=== PATIENT | female | born 1990 | race Two or more races ===

== ENCOUNTER → 2021-09-30 | Outpatient (CLI) | payer MEDICAID ==
[~2021-09-30] MED LIST: NORG1TAB OR; PROP60CA34 PO
[2021-09-30 14:39] LABS: Urine Bacteria NONE SEEN /hpf (None Seen); Urine Blood 2+ /uL (Negative); Urine Mucus FEW (None Seen); Urine Specific Gravity 1.018 (1.001-1.035); Urine WBC 1804 /hpf (0 - 5); Urine WBC Clumps PRESENT /hpf (None Seen)
[2021-10-01 07:57] LABS: Urine Bacteria NONE SEEN /hpf (None Seen); Urine Blood 3+ /uL (Negative); Urine Budding Yeast FEW /hpf (None Seen); Urine Mucus FEW (None Seen); Urine Specific Gravity 1.014 (1.001-1.035); Urine WBC 940 /hpf (0 - 5); Urine WBC Clumps PRESENT /hpf (None Seen)
== END | disposition home or self-care (01) ==
LOC: LAB 13:27
PROVIDERS: ATTEND Urology
DX: N39.0 Urinary tract infection, site not specified (principal)
CPT/HCPCS: 81001; 87086

== ENCOUNTER → 2021-10-07 | Outpatient (CLI) | payer MEDICAID ==
[2021-10-07 13:48] LABS: Urine Bacteria FEW /hpf (None Seen); Urine Blood 3+ /uL (Negative); Urine Mucus FEW (None Seen); Urine WBC 234 /hpf (0 - 5); Urine WBC Clumps PRESENT /hpf (None Seen)
== END | disposition home or self-care (01) ==
LOC: LAB 13:22
PROVIDERS: ATTEND Urology
DX: N39.0 Urinary tract infection, site not specified (principal)
CPT/HCPCS: 81001; 87086

== ENCOUNTER 2021-10-19 00:50 | Inpatient (IN) | payer MEDICAID ==
[~2021-10-19] VITALS: Ht 160 cm; Wt 108.3 kg
[2021-10-19 02:33] LABS: Basophils # (auto) 0.1 10 ^3/uL (0-0.2); Eosinophils # (auto) 0 10 ^3/uL (0-0.8); Monocytes # (auto) 0.9 10 ^3/uL (0-1.3)
[2021-10-19 02:35] LABS: Basophils % (auto) 0.9 % (0.0-2.0); Eosinophils % (auto) 0.5 % (0.0-7.0); Hematocrit 26.2 % (36.0-46.0); Hemoglobin 7.7 g/dL (12.2-16.2); Lymphocytes # (auto) 1.7 10 ^3/uL (0.4-5.4); Lymphocytes % (auto) 18.2 % (10.0-50.0); Mean Corpuscular Hgb Conc. 29.5 g/dL (32.0-36.0); Mean Corpuscular Volume 57.5 fL (80.0-100.0); Monocytes % (auto) 9.6 % (0.0-12.0); Neutrophils # (auto) 6.6 10 ^3/uL (1.6-8.6); Neutrophils % (auto) 70.8 % (37.0-80.0); Red Blood Cells 4.56 10^6/uL (4.0-5.20); Red Cell Distribution Width 19.1 % (11.8-14.3); White Blood Cell 9.2 10^3/uL (4.4-10.8)
[2021-10-19 02:36] LABS: Urine Bacteria NONE SEEN /hpf (None Seen); Urine Blood 2+ /uL (Negative); Urine Mucus MODERATE (None Seen); Urine WBC 1117 /hpf (0 - 5); Urine WBC Clumps PRESENT /hpf (None Seen)
[2021-10-19 02:43] LABS: Urine Specific Gravity 1.032 (1.001-1.035)
[2021-10-19 02:50] LABS: Albumin 3.8 g/dL (3.4-5.0); BUN/Creatinine Ratio 14.4; Calcium 8.9 mg/dL (8.5-10.1)
[2021-10-19 02:53] LABS: Bilirubin, Total 0.3 mg/dL (0.2-1.0); Total Protein 8.4 g/dL (6.4-8.2)
[2021-10-19] MEDS ORDERED: IOHEXOL 300 MG/ML 100ML BOTTLE IJ ONE (03:19)
[2021-10-19] MEDS ORDERED: ONDANSETRON HCL 4 MG/2 ML VIAL IV ONE (06:15)
[2021-10-19] MEDS ORDERED: HYDROmorphone HCL 2 MG/ML VL/or syr IV ONE (06:15)
[2021-10-19] MEDS ORDERED: SODIUM CHLORIDE 0.9% 1,000 ML IV ONE (06:15)
[2021-10-19] MEDS ORDERED: ACETAMINOPHEN 325 MG TAB PO PRN (10:30)
[2021-10-19] MEDS: SODIUM CHLORIDE 0.9% 1,000 ML IV SCH (10:30)
[2021-10-19] MEDS: HYDROcodone-ACET 5/325MG TAB PO PRN (10:43)
[2021-10-19] MEDS: metroNIDAZOLE 500MG/100ML 100 ML IV SCH ×2 (10:43→18:22)
[2021-10-19] MEDS: cefTRIAXone 1GM/50ML D5W 50 ML IV SCH (11:41)
[2021-10-19 12:23] LABS: Magnesium 2.3 mg/dL (1.6-2.6); Phosphorus 3.4 mg/dL (2.5-4.90)
[2021-10-19 13:30] VITALS: BP 110/51
[2021-10-19] MEDS ORDERED: IOTHALAMATE MEGLUMINE INJ 250ML BOT UR ONE (14:49)
[2021-10-19 15:15] LABS: INR 0.96 (0.9-1.15); Partial Thromboplastin Time 29.1 sec (24.6-33.4)
[2021-10-19] MEDS: MORPHINE SULFATE INJ 2 MG/ml SYRG IV PRN (16:39)
[2021-10-19 16:55] VITALS: BP 117/60
[2021-10-19] MEDS ORDERED: TPN PER PHARMACY 0 ML IV SCH (17:30)
[2021-10-19 19:45] VITALS: BP 114/57
[2021-10-19] MEDS ORDERED: AMINO ACID INFUSION IN D10W 1,000 ML IV NR (20:00)
[2021-10-19 22:00] VITALS: BP 114/57
[2021-10-20] MEDS ORDERED: DEXTROSE (50%) 50ML SYRG IV SCH
[2021-10-20] MEDS: ACCU-CHEK COMFORT CURVE STRIP VI SCH ×5 (00:40→23:58)
[2021-10-20] MEDS: metroNIDAZOLE 500MG/100ML 100 ML IV SCH ×3 (02:53→18:27)
[2021-10-20] MEDS: SODIUM CHLORIDE 0.9% 1,000 ML IV SCH ×2 (03:10→19:50)
[2021-10-20 05:00] VITALS: BP 121/76
[2021-10-20] MEDS: InsuLIN REG 1unit/0.01ml Soln (100units/ml) SC SCH ×5 (06:00→23:59)
[2021-10-20 06:09] LABS: Basophils # (auto) 0.1 10 ^3/uL (0-0.2); Eosinophils # (auto) 0 10 ^3/uL (0-0.8); Lymphocytes # (auto) 1.8 10 ^3/uL (0.4-5.4); Monocytes # (auto) 0.5 10 ^3/uL (0-1.3)
[2021-10-20 06:13] LABS: Eosinophils % (auto) 0.7 % (0.0-7.0); Hemoglobin 7.1 g/dL (12.2-16.2); Lymphocytes % (auto) 32.2 % (10.0-50.0); Mean Corpuscular Hemoglobin 16.4 pg (28.0-32.0); Mean Corpuscular Hgb Conc. 28.4 g/dL (32.0-36.0); Mean Corpuscular Volume 57.9 fL (80.0-100.0); Monocytes % (auto) 8.8 % (0.0-12.0); Neutrophils # (auto) 3.1 10 ^3/uL (1.6-8.6); Neutrophils % (auto) 57.3 % (37.0-80.0); Nucleated Red Blood Cells % 0.1 %; Red Blood Cells 4.32 10^6/uL (4.0-5.20); Red Cell Distribution Width 19.4 % (11.8-14.3); White Blood Cell 5.4 10^3/uL (4.4-10.8)
[2021-10-20 06:26] LABS: Calcium 8.5 mg/dL (8.5-10.1)
[2021-10-20 06:33] LABS: Albumin 3.2 g/dL (3.4-5.0); BUN/Creatinine Ratio 11.3; Bilirubin, Total 0.6 mg/dL (0.2-1.0); Magnesium 2.3 mg/dL (1.6-2.6); Potassium 3.8 mmol/L (3.5-5.1); Total Protein 7.3 g/dL (6.4-8.2)
[2021-10-20 08:30] VITALS: BP 107/53
[2021-10-20] MEDS ORDERED: GASTROGRAFIN 120 ML SOL ONE (08:40)
[2021-10-20] MEDS: cefTRIAXone 1GM/50ML D5W 50 ML IV SCH (09:36)
[2021-10-20] MEDS: MORPHINE SULFATE INJ 2 MG/ml SYRG IV PRN (09:37)
[2021-10-20] MEDS ORDERED: ENOXAPARIN SOD 40 MG/0.4 ML SYRINGE SC SCH (10:00)
[2021-10-20] MEDS ORDERED: LIDOCAINE 1% (LOCAL ANESTH.) PF 5ml SDV ID ONE (11:30)
[2021-10-20 13:00] VITALS: BP 122/71
[2021-10-20 17:30] VITALS: BP 136/57
[2021-10-20 20:00] VITALS: BP 126/73
[2021-10-20] MEDS ORDERED: PPN PER PHARMACY IV NR ×9 (20:00)
[2021-10-20] MEDS: SODIUM CHLOR 0.9% PF (SALINE LOCK) 10ML VIAL/SYR IV SCH (21:57)
[2021-10-20 22:00] VITALS: BP 126/73
[2021-10-21] VITALS (8 sets, daily range): BP systolic 105–124; BP diastolic 57–75
[2021-10-21] MEDS: metroNIDAZOLE 500MG/100ML 100 ML IV SCH ×3 (02:03→18:53)
[2021-10-21 05:36] LABS: Eosinophils # (auto) 0 10 ^3/uL (0-0.8); Neutrophils # (auto) 6.2 10 ^3/uL (1.6-8.6); White Blood Cell 8.7 10^3/uL (4.4-10.8)
[2021-10-21 05:40] LABS: Basophils # (auto) 0.1 10 ^3/uL (0-0.2); Basophils % (auto) 0.7 % (0.0-2.0); Eosinophils % (auto) 0.3 % (0.0-7.0); Hematocrit 23.2 % (36.0-46.0); Lymphocytes # (auto) 1.8 10 ^3/uL (0.4-5.4); Lymphocytes % (auto) 20.1 % (10.0-50.0); Mean Corpuscular Hemoglobin 16.6 pg (28.0-32.0); Mean Corpuscular Hgb Conc. 28.9 g/dL (32.0-36.0); Mean Corpuscular Volume 57.5 fL (80.0-100.0); Monocytes # (auto) 0.7 10 ^3/uL (0-1.3); Monocytes % (auto) 8.2 % (0.0-12.0); Neutrophils % (auto) 70.7 % (37.0-80.0); Red Blood Cells 4.05 10^6/uL (4.0-5.20); Red Cell Distribution Width 19.6 % (11.8-14.3)
[2021-10-21 05:54] LABS: Alanine Aminotransferase 19 U/L (13-56); Albumin 3.1 g/dL (3.4-5.0); Anion Gap 9 (5-15); Aspartate Aminotransferase 13 U/L (15-37); BUN/Creatinine Ratio 21.3; Blood Urea Nitrogen 10 mg/dL (7-18); Calcium 8.4 mg/dL (8.5-10.1); Carbon Dioxide 22 mmol/L (21-32); Chloride 109 mmol/L (98-107); GFR African American 196 mL/min; GFR Non-African American 162 mL/min; Glucose 112 mg/dL (74-106); Magnesium 2.2 mg/dL (1.6-2.6); Potassium 3.7 mmol/L (3.5-5.1); Sodium 140 mmol/L (136-145)
[2021-10-21 05:56] LABS: Alkaline Phosphatase 80 U/L (45-117); Bilirubin, Total 0.3 mg/dL (0.2-1.0); Phosphorus 2.4 mg/dL (2.5-4.90); Total Protein 7.1 g/dL (6.4-8.2)
[2021-10-21 05:59] LABS: % Iron Saturation 3.8 % (15-50)
[2021-10-21] MEDS: InsuLIN REG 1unit/0.01ml Soln (100units/ml) SC SCH ×3 (06:00→17:22)
[2021-10-21] MEDS: ACCU-CHEK COMFORT CURVE STRIP VI SCH ×3 (06:05→17:22)
[2021-10-21 06:07] LABS: Hemoglobin 6.7 g/dL (12.2-16.2)
[2021-10-21] MEDS: cefTRIAXone 1GM/50ML D5W 50 ML IV SCH ×2 (09:00→10:20)
[2021-10-21] MEDS: SODIUM CHLOR 0.9% PF (SALINE LOCK) 10ML VIAL/SYR IV SCH ×2 (10:18→21:13)
[2021-10-21] MEDS ORDERED: POTASSIUM PHOSP 22MEQ(15MMOLE) in NS 100 ML IV ONE (11:15)
[2021-10-21] MEDS: SODIUM CHLORIDE 0.9% 1,000 ML IV SCH (12:30)
[2021-10-21] MEDS: SODIUM FERR GLUC 62.5MG/5ML 125 MG in SODIUM CHL 0.9% 100 ML IV SCH (13:27)
[2021-10-21] MEDS ORDERED: TPN PER PHARMACY IV NR ×10 (20:00)
[2021-10-21 21:30] LABS: Hematocrit 30.8 % (36.0-46.0); Hemoglobin 8.9 g/dL (12.2-16.2)
[2021-10-22] MEDS: InsuLIN REG 1unit/0.01ml Soln (100units/ml) SC SCH ×5 (00:35→23:53)
[2021-10-22] MEDS: MORPHINE SULFATE INJ 2 MG/ml SYRG IV PRN (01:03)
[2021-10-22] MEDS: metroNIDAZOLE 500MG/100ML 100 ML IV SCH ×3 (01:55→18:21)
[2021-10-22 05:00] VITALS: BP 105/54
[2021-10-22] MEDS: SODIUM CHLORIDE 0.9% 1,000 ML IV SCH ×2 (05:03→21:50)
[2021-10-22] MEDS: ACCU-CHEK COMFORT CURVE STRIP VI SCH ×5 (05:16→23:53)
[2021-10-22 06:20] LABS: Basophils # (auto) 0 10 ^3/uL (0-0.2); Eosinophils # (auto) 0.1 10 ^3/uL (0-0.8); Hemoglobin 8.4 g/dL (12.2-16.2); Lymphocytes % (auto) 26.6 % (10.0-50.0); Neutrophils # (auto) 4.6 10 ^3/uL (1.6-8.6)
[2021-10-22 06:26] LABS: Basophils % (auto) 0.5 % (0.0-2.0); Eosinophils % (auto) 0.9 % (0.0-7.0); Hematocrit 28.9 % (36.0-46.0); Lymphocytes # (auto) 1.9 10 ^3/uL (0.4-5.4); Mean Corpuscular Hemoglobin 18.3 pg (28.0-32.0); Mean Corpuscular Volume 63.1 fL (80.0-100.0); Monocytes # (auto) 0.6 10 ^3/uL (0-1.3); Monocytes % (auto) 8.8 % (0.0-12.0); Neutrophils % (auto) 63.2 % (37.0-80.0); Nucleated Red Blood Cells % 0.2 %; Red Blood Cells 4.58 10^6/uL (4.0-5.20); White Blood Cell 7.3 10^3/uL (4.4-10.8)
[2021-10-22 06:36] LABS: Potassium 3.5 mmol/L (3.5-5.1)
[2021-10-22 06:38] LABS: Albumin 3.2 g/dL (3.4-5.0); BUN/Creatinine Ratio 16.3; Calcium 8.5 mg/dL (8.5-10.1); Magnesium 2.4 mg/dL (1.6-2.6)
[2021-10-22 06:44] LABS: Bilirubin, Total 0.7 mg/dL (0.2-1.0); Phosphorus 2.9 mg/dL (2.5-4.90); Total Protein 7.2 g/dL (6.4-8.2)
[2021-10-22 06:47] LABS: Red Cell Distribution Width 22.8 % (11.8-14.3)
[2021-10-22 09:00] VITALS: BP 125/60
[2021-10-22] MEDS ORDERED: POTASSIUM PHOSPHATE 22 MEQ in SODIUM CHL 0.9% 100 ML IV ONE (09:45)
[2021-10-22] MEDS: SODIUM CHLOR 0.9% PF (SALINE LOCK) 10ML VIAL/SYR IV SCH ×2 (10:29→22:00)
[2021-10-22 12:53] VITALS: BP 112/56
[2021-10-22] MEDS: SODIUM FERR GLUC 62.5MG/5ML 125 MG in SODIUM CHL 0.9% 100 ML IV SCH (14:01)
[2021-10-22 17:05] VITALS: BP 122/62
[2021-10-22] MEDS ORDERED: TPN PER PHARMACY IV NR ×9 (20:00)
[2021-10-22 22:00] VITALS: BP 131/65
[2021-10-23] MEDS: MORPHINE SULFATE INJ 2 MG/ml SYRG IV PRN ×2 (01:58→23:27)
[2021-10-23 05:04] VITALS: BP 110/59
[2021-10-23] MEDS: InsuLIN REG 1unit/0.01ml Soln (100units/ml) SC SCH ×4 (06:00→23:26)
[2021-10-23] MEDS: metroNIDAZOLE 500MG/100ML 100 ML IV SCH ×3 (06:00→18:11)
[2021-10-23] MEDS: ACCU-CHEK COMFORT CURVE STRIP VI SCH ×4 (06:05→23:26)
[2021-10-23 06:49] LABS: Eosinophils # (auto) 0.2 10 ^3/uL (0-0.8); Mean Corpuscular Hemoglobin 18.3 pg (28.0-32.0); Mean Corpuscular Hgb Conc. 29.3 g/dL (32.0-36.0); Neutrophils # (auto) 4.1 10 ^3/uL (1.6-8.6); Nucleated Red Blood Cells % 0.1 %
[2021-10-23 06:52] LABS: Potassium 3.9 mmol/L (3.5-5.1)
[2021-10-23 06:53] LABS: Basophils # (auto) 0.1 10 ^3/uL (0-0.2); Basophils % (auto) 1.1 % (0.0-2.0); Eosinophils % (auto) 3.3 % (0.0-7.0); Hematocrit 27.3 % (36.0-46.0); Lymphocytes # (auto) 2.4 10 ^3/uL (0.4-5.4); Lymphocytes % (auto) 32.1 % (10.0-50.0); Monocytes # (auto) 0.7 10 ^3/uL (0-1.3); Monocytes % (auto) 9.3 % (0.0-12.0); Neutrophils % (auto) 54.2 % (37.0-80.0); Red Blood Cells 4.35 10^6/uL (4.0-5.20); Red Cell Distribution Width 23.6 % (11.8-14.3); White Blood Cell 7.5 10^3/uL (4.4-10.8)
[2021-10-23 07:02] LABS: BUN/Creatinine Ratio 16.7; Bilirubin, Total 0.3 mg/dL (0.2-1.0); Calcium 8.3 mg/dL (8.5-10.1); Magnesium 2.4 mg/dL (1.6-2.6); Phosphorus 3.7 mg/dL (2.5-4.90); Total Protein 6.9 g/dL (6.4-8.2)
[2021-10-23 07:15] LABS: Mean Corpuscular Volume 62.6 fL (80.0-100.0)
[2021-10-23] MEDS: cefTRIAXone 1GM/50ML D5W 50 ML IV SCH (08:35)
[2021-10-23 08:47] VITALS: BP 117/75
[2021-10-23] MEDS: SODIUM CHLOR 0.9% PF (SALINE LOCK) 10ML VIAL/SYR IV SCH ×2 (09:52→23:26)
[2021-10-23] MEDS ORDERED: FLUCONAZOLE 100 MG TAB PO ONE (11:45)
[2021-10-23] MEDS: SODIUM FERR GLUC 62.5MG/5ML 125 MG in SODIUM CHL 0.9% 100 ML IV SCH (12:26)
[2021-10-23 12:43] VITALS: BP 107/75
[2021-10-23] MEDS: SODIUM CHLORIDE 0.9% 1,000 ML IV SCH (14:39)
[2021-10-23 16:44] VITALS: BP 115/56
[2021-10-23] MEDS ORDERED: TPN PER PHARMACY IV NR ×9 (20:00)
[2021-10-23 21:36] VITALS: BP 121/56
[2021-10-23] MEDS: NYSTATIN TOPICAL CREAM 15GM TOP SCH (21:41)
[2021-10-24] MEDS: metroNIDAZOLE 500MG/100ML 100 ML IV SCH ×3 (01:35→18:28)
[2021-10-24 04:50] VITALS: BP 107/58
[2021-10-24] MEDS: InsuLIN REG 1unit/0.01ml Soln (100units/ml) SC SCH ×3 (05:28→18:00)
[2021-10-24] MEDS: ACCU-CHEK COMFORT CURVE STRIP VI SCH ×3 (05:29→18:28)
[2021-10-24 05:36] LABS: Albumin 3.2 g/dL (3.4-5.0); Calcium 8.5 mg/dL (8.5-10.1); Potassium 4.1 mmol/L (3.5-5.1)
[2021-10-24 05:41] LABS: BUN/Creatinine Ratio 15.4; Bilirubin, Total 0.3 mg/dL (0.2-1.0); Magnesium 2.3 mg/dL (1.6-2.6); Phosphorus 3.8 mg/dL (2.5-4.90); Total Protein 7.1 g/dL (6.4-8.2)
[2021-10-24 09:00] VITALS: BP 118/63
[2021-10-24] MEDS: SODIUM CHLORIDE 0.9% 1,000 ML IV SCH ×2 (09:39→23:19)
[2021-10-24] MEDS: cefTRIAXone 1GM/50ML D5W 50 ML IV SCH (09:39)
[2021-10-24] MEDS: FLUCONAZOLE 100 MG TAB PO SCH (09:40)
[2021-10-24] MEDS: SODIUM CHLOR 0.9% PF (SALINE LOCK) 10ML VIAL/SYR IV SCH ×2 (09:40→22:26)
[2021-10-24] MEDS: NYSTATIN TOPICAL CREAM 15GM TOP SCH ×2 (10:00→22:00)
[2021-10-24] MEDS: MORPHINE SULFATE INJ 2 MG/ml SYRG IV PRN (11:15)
[2021-10-24] MEDS: SODIUM FERR GLUC 62.5MG/5ML 125 MG in SODIUM CHL 0.9% 100 ML IV SCH (12:18)
[2021-10-24 13:00] VITALS: BP 139/82
[2021-10-24 17:00] VITALS: BP 132/81
[2021-10-24] MEDS ORDERED: TPN PER PHARMACY IV NR ×9 (20:00)
[2021-10-24 22:00] VITALS: BP 130/75
[2021-10-25] MEDS: InsuLIN REG 1unit/0.01ml Soln (100units/ml) SC SCH ×5 (00:43→23:57)
[2021-10-25] MEDS: MORPHINE SULFATE INJ 2 MG/ml SYRG IV PRN ×2 (00:45→23:56)
[2021-10-25] MEDS: metroNIDAZOLE 500MG/100ML 100 ML IV SCH ×3 (02:30→18:13)
[2021-10-25 05:00] VITALS: BP 118/69
[2021-10-25] MEDS: ACCU-CHEK COMFORT CURVE STRIP VI SCH ×5 (06:21→23:57)
[2021-10-25 06:59] LABS: Eosinophils # (auto) 0.2 10 ^3/uL (0-0.8); Hemoglobin 9.1 g/dL (12.2-16.2); Lymphocytes # (auto) 2.2 10 ^3/uL (0.4-5.4); Nucleated Red Blood Cells % 0.1 %; Red Blood Cells 4.82 10^6/uL (4.0-5.20)
[2021-10-25 07:04] LABS: Basophils # (auto) 0.1 10 ^3/uL (0-0.2); Basophils % (auto) 0.8 % (0.0-2.0); Eosinophils % (auto) 3.1 % (0.0-7.0); Hematocrit 31.5 % (36.0-46.0); Lymphocytes % (auto) 32.5 % (10.0-50.0); Mean Corpuscular Hemoglobin 18.8 pg (28.0-32.0); Mean Corpuscular Hgb Conc. 28.8 g/dL (32.0-36.0); Monocytes # (auto) 0.5 10 ^3/uL (0-1.3); Neutrophils # (auto) 3.7 10 ^3/uL (1.6-8.6); Neutrophils % (auto) 55.6 % (37.0-80.0); White Blood Cell 6.7 10^3/uL (4.4-10.8)
[2021-10-25 07:09] LABS: % Iron Saturation 18.9 % (15-50)
[2021-10-25 07:14] LABS: Albumin 3.6 g/dL (3.4-5.0); Calcium 8.9 mg/dL (8.5-10.1); Potassium 4.3 mmol/L (3.5-5.1)
[2021-10-25 07:30] LABS: BUN/Creatinine Ratio 19.1; Bilirubin, Total 0.3 mg/dL (0.2-1.0); Magnesium 2.4 mg/dL (1.6-2.6); Phosphorus 4.2 mg/dL (2.5-4.90); Total Protein 7.3 g/dL (6.4-8.2)
[2021-10-25 07:35] LABS: Mean Corpuscular Volume 65.3 fL (80.0-100.0); Red Cell Distribution Width 24.7 % (11.8-14.3)
[2021-10-25 08:30] VITALS: BP 117/64
[2021-10-25] MEDS: cefTRIAXone 1GM/50ML D5W 50 ML IV SCH (09:00)
[2021-10-25] MEDS: FLUCONAZOLE 100 MG TAB PO SCH (09:46)
[2021-10-25] MEDS: SODIUM CHLOR 0.9% PF (SALINE LOCK) 10ML VIAL/SYR IV SCH ×2 (09:46→21:45)
[2021-10-25] MEDS: NYSTATIN TOPICAL CREAM 15GM TOP SCH ×2 (09:47→21:45)
[2021-10-25 12:30] VITALS: BP 143/80
[2021-10-25] MEDS: SODIUM FERR GLUC 62.5MG/5ML 125 MG in SODIUM CHL 0.9% 100 ML IV SCH (12:40)
[2021-10-25 16:30] VITALS: BP 122/76
[2021-10-25] MEDS: SODIUM CHLORIDE 0.9% 1,000 ML IV SCH (17:07)
[2021-10-25] MEDS ORDERED: TPN PER PHARMACY IV NR ×9 (20:00)
[2021-10-25 22:00] VITALS: BP 113/54
[2021-10-26] MEDS: metroNIDAZOLE 500MG/100ML 100 ML IV SCH ×3 (02:09→18:09)
[2021-10-26 05:00] VITALS: BP 115/62
[2021-10-26] MEDS: InsuLIN REG 1unit/0.01ml Soln (100units/ml) SC SCH ×4 (06:00→23:47)
[2021-10-26 06:31] LABS: Albumin 3.3 g/dL (3.4-5.0); Calcium 8.7 mg/dL (8.5-10.1); Magnesium 2.4 mg/dL (1.6-2.6); Potassium 4.1 mmol/L (3.5-5.1)
[2021-10-26 06:33] LABS: BUN/Creatinine Ratio 25.5
[2021-10-26 06:36] LABS: Bilirubin, Total 0.3 mg/dL (0.2-1.0); Phosphorus 3.7 mg/dL (2.5-4.90); Total Protein 7.2 g/dL (6.4-8.2)
[2021-10-26] MEDS: ACCU-CHEK COMFORT CURVE STRIP VI SCH ×4 (06:45→23:36)
[2021-10-26] MEDS: cefTRIAXone 1GM/50ML D5W 50 ML IV SCH (08:35)
[2021-10-26 09:00] VITALS: BP 108/64
[2021-10-26] MEDS: SODIUM CHLORIDE 0.9% 1,000 ML IV SCH ×2 (09:10→23:37)
[2021-10-26] MEDS: SODIUM CHLOR 0.9% PF (SALINE LOCK) 10ML VIAL/SYR IV SCH ×2 (09:58→09:59)
[2021-10-26] MEDS: FLUCONAZOLE 100 MG TAB PO SCH (09:58)
[2021-10-26] MEDS: SODIUM FERR GLUC 62.5MG/5ML 125 MG in SODIUM CHL 0.9% 100 ML IV SCH (12:11)
[2021-10-26 13:00] VITALS: BP 120/75
[2021-10-26] MEDS: NYSTATIN TOPICAL CREAM 15GM TOP SCH ×2 (13:26→21:24)
[2021-10-26] MEDS ORDERED: GOLYTELY 4L KIT PO ONE (14:15)
[2021-10-26 15:44] LABS: INR 1.03 (0.9-1.15); Partial Thromboplastin Time 28.3 sec (24.6-33.4)
[2021-10-26 17:25] VITALS: BP 120/75
[2021-10-26] MEDS: HYDROcodone-ACET 5/325MG TAB PO PRN (17:32)
[2021-10-26] MEDS: MORPHINE SULFATE INJ 2 MG/ml SYRG IV PRN ×2 (18:09→23:36)
[2021-10-26] MEDS ORDERED: TPN PER PHARMACY IV NR ×9 (20:00)
[2021-10-26 22:00] VITALS: BP 124/82
[2021-10-27] MEDS: metroNIDAZOLE 500MG/100ML 100 ML IV SCH ×3 (02:08→18:41)
[2021-10-27 05:00] VITALS: BP 110/56
[2021-10-27] MEDS: InsuLIN REG 1unit/0.01ml Soln (100units/ml) SC SCH ×3 (05:33→18:43)
[2021-10-27] MEDS: ACCU-CHEK COMFORT CURVE STRIP VI SCH ×3 (05:33→18:42)
[2021-10-27 06:15] LABS: Potassium 4.1 mmol/L (3.5-5.1)
[2021-10-27 06:21] LABS: Albumin 3.3 g/dL (3.4-5.0); BUN/Creatinine Ratio 29.5; Calcium 8.6 mg/dL (8.5-10.1); Magnesium 2.4 mg/dL (1.6-2.6)
[2021-10-27 06:24] LABS: Bilirubin, Total 0.3 mg/dL (0.2-1.0); Phosphorus 3.5 mg/dL (2.5-4.90); Total Protein 6.9 g/dL (6.4-8.2)
[2021-10-27] MEDS: MORPHINE SULFATE INJ 2 MG/ml SYRG IV PRN ×2 (06:26→11:32)
[2021-10-27] MEDS ORDERED: cefTRIAXone SOD 1,000 MG VL ONE (07:11)
[2021-10-27] MEDS ORDERED: fentaNYL CITRATE 100 MCG/2 ML VL ONE ×2 (07:28→08:58)
[2021-10-27] MEDS ORDERED: ROCURONIUM 10MG/ML 10ML VIAL IV ONE (07:29)
[2021-10-27] MEDS ORDERED: MIDAZOLAM HCL 2MG/2ML 2ml VIAL (1mg/ml) ONE (07:29)
[2021-10-27] MEDS ORDERED: SUCCINYLCHOLINE CHLORIDE 20 MG/ML 10ML VIAL IV ONE (07:33)
[2021-10-27] MEDS ORDERED: LIDOCAINE 2% (LOCAL ANESTH.) PF 5ml SDV ONE (07:41)
[2021-10-27] MEDS ORDERED: ONDANSETRON HCL 4 MG/2 ML VIAL ONE (07:41)
[2021-10-27] MEDS ORDERED: METHYLENE BLUE 0.5% 5MG/ML 10ml AMP IV ONE (08:23)
[2021-10-27 08:37] VITALS: BP 120/65
[2021-10-27] MEDS ORDERED: PROPOFOL 10 MG/ML 20 ML IV ONE ×2 (08:57→09:46)
[2021-10-27] MEDS ORDERED: HYDROmorphone HCL 2 MG/ML VL/or syr ONE (08:57)
[2021-10-27] MEDS ORDERED: ESMOLOL HCL 10 ML IV ONE (08:57)
[2021-10-27] MEDS: cefTRIAXone 1GM/50ML D5W 50 ML IV SCH (09:00)
[2021-10-27 09:03] LABS: Pre Albumin 20.9 mg/dL (20.0-40.0)
[2021-10-27] MEDS ORDERED: ONDANSETRON HCL 4 MG/2 ML VIAL IV PRN (09:15)
[2021-10-27] MEDS ORDERED: HYDROmorphone HCL 2 MG/ML VL/or syr IV PRN (09:15)
[2021-10-27] MEDS ORDERED: POVIDONE IODINE 10 % TOPICAL OINT 30GM TOP ONE (09:29)
[2021-10-27] MEDS ORDERED: ROPIVACAINE 0.5% (5MG/ML) 20ML AMPULE IJ ONE (09:44)
[2021-10-27] MEDS ORDERED: SUGAMMADEX 200mg/2ml Vial (100MG/ML) IV ONE (09:48)
[2021-10-27] MEDS: FLUCONAZOLE 100 MG TAB PO SCH (10:00)
[2021-10-27] MEDS: HYDROmorphone HCL 2 MG/ML VL/or syr IV PRN ×5 (10:16→22:52)
[2021-10-27] MEDS: SODIUM CHLOR 0.9% PF (SALINE LOCK) 10ML VIAL/SYR IV SCH ×2 (11:48→21:30)
[2021-10-27] MEDS: NYSTATIN TOPICAL CREAM 15GM TOP SCH ×2 (12:03→21:30)
[2021-10-27] MEDS: SODIUM FERR GLUC 62.5MG/5ML 125 MG in SODIUM CHL 0.9% 100 ML IV SCH (12:35)
[2021-10-27 13:00] VITALS: BP 127/71
[2021-10-27] MEDS: HYDROcodone-ACET 5/325MG TAB PO PRN (14:05)
[2021-10-27 17:02] VITALS: BP 123/70
[2021-10-27] MEDS: SODIUM CHLORIDE 0.9% 1,000 ML IV SCH (18:43)
[2021-10-27] MEDS ORDERED: TPN PER PHARMACY IV NR ×9 (20:00)
[2021-10-27] MEDS ORDERED: GABAPENTIN 100 MG CAP PO ONE (21:45)
[2021-10-27 22:00] VITALS: BP 117/66
[2021-10-28] MEDS: ACCU-CHEK COMFORT CURVE STRIP VI SCH ×5 (00:23→23:47)
[2021-10-28] MEDS: InsuLIN REG 1unit/0.01ml Soln (100units/ml) SC SCH ×5 (00:26→23:47)
[2021-10-28] MEDS: metroNIDAZOLE 500MG/100ML 100 ML IV SCH ×3 (02:23→18:08)
[2021-10-28] MEDS: HYDROmorphone HCL 2 MG/ML VL/or syr IV PRN ×2 (02:40→06:25)
[2021-10-28 05:00] VITALS: BP 130/66
[2021-10-28 05:29] LABS: Eosinophils # (auto) 0 10 ^3/uL (0-0.8); Hemoglobin 9.1 g/dL (12.2-16.2); Lymphocytes # (auto) 1.2 10 ^3/uL (0.4-5.4); Mean Corpuscular Volume 67.5 fL (80.0-100.0); Monocytes # (auto) 0.9 10 ^3/uL (0-1.3)
[2021-10-28 05:31] LABS: Basophils # (auto) 0 10 ^3/uL (0-0.2); Basophils % (auto) 0.2 % (0.0-2.0); Lymphocytes % (auto) 8.6 % (10.0-50.0); Mean Corpuscular Hemoglobin 20.6 pg (28.0-32.0); Mean Corpuscular Hgb Conc. 30.5 g/dL (32.0-36.0); Neutrophils # (auto) 11.4 10 ^3/uL (1.6-8.6); Neutrophils % (auto) 84.2 % (37.0-80.0); Red Blood Cells 4.44 10^6/uL (4.0-5.20); White Blood Cell 13.5 10^3/uL (4.4-10.8)
[2021-10-28 05:37] LABS: Red Cell Distribution Width 33.5 % (11.8-14.3)
[2021-10-28 05:44] LABS: Calcium 7.9 mg/dL (8.5-10.1); Magnesium 2.2 mg/dL (1.6-2.6); Potassium 4.2 mmol/L (3.5-5.1)
[2021-10-28 05:47] LABS: BUN/Creatinine Ratio 26.2; Bilirubin, Total 0.5 mg/dL (0.2-1.0); Phosphorus 3.4 mg/dL (2.5-4.90); Total Protein 6.2 g/dL (6.4-8.2)
[2021-10-28] MEDS ORDERED: KETOROLAC TROMETH 30 MG/ML 1ML VIAL IV ONE (08:30)
[2021-10-28 09:00] VITALS: BP 127/84
[2021-10-28] MEDS: cefTRIAXone 1GM/50ML D5W 50 ML IV SCH (09:00)
[2021-10-28] MEDS: SODIUM CHLOR 0.9% PF (SALINE LOCK) 10ML VIAL/SYR IV SCH ×2 (10:00→22:31)
[2021-10-28] MEDS: NYSTATIN TOPICAL CREAM 15GM TOP SCH ×2 (10:00→22:00)
[2021-10-28] MEDS: SODIUM CHLORIDE 0.9% 1,000 ML IV SCH (11:30)
[2021-10-28] MEDS: MORPHINE SULFATE 4 MG/ML SYR/VIAL IV PRN ×3 (11:32→22:25)
[2021-10-28 12:53] VITALS: BP 124/80
[2021-10-28 17:00] VITALS: BP 107/68
[2021-10-28] MEDS ORDERED: TPN PER PHARMACY IV NR ×10 (20:00)
[2021-10-28] MEDS: KETOROLAC TROMETH 30 MG/ML 1ML VIAL IV PRN (20:03)
[2021-10-28] MEDS ORDERED: LORazepam 2MG/ML-1ML VIAL IV PRN (22:45)
[2021-10-29] MEDS: metroNIDAZOLE 500MG/100ML 100 ML IV SCH ×3 (02:28→18:18)
[2021-10-29] MEDS: MORPHINE SULFATE 4 MG/ML SYR/VIAL IV PRN ×3 (04:16→18:19)
[2021-10-29] MEDS: SODIUM CHLORIDE 0.9% 1,000 ML IV SCH ×2 (04:17→21:06)
[2021-10-29] MEDS: ACCU-CHEK COMFORT CURVE STRIP VI SCH ×3 (05:29→18:00)
[2021-10-29 05:30] VITALS: BP 127/75
[2021-10-29] MEDS: InsuLIN REG 1unit/0.01ml Soln (100units/ml) SC SCH ×3 (05:30→18:00)
[2021-10-29 06:16] LABS: Basophils # (auto) 0 10 ^3/uL (0-0.2); Eosinophils # (auto) 0 10 ^3/uL (0-0.8); Hemoglobin 9.4 g/dL (12.2-16.2); Monocytes # (auto) 1.1 10 ^3/uL (0-1.3); Monocytes % (auto) 8.5 % (0.0-12.0)
[2021-10-29 06:19] LABS: Basophils % (auto) 0.2 % (0.0-2.0); Hematocrit 31.3 % (36.0-46.0); Lymphocytes # (auto) 1.1 10 ^3/uL (0.4-5.4); Lymphocytes % (auto) 8.6 % (10.0-50.0); Mean Corpuscular Hemoglobin 20.8 pg (28.0-32.0); Mean Corpuscular Volume 69.1 fL (80.0-100.0); Neutrophils # (auto) 10.4 10 ^3/uL (1.6-8.6); Neutrophils % (auto) 82.7 % (37.0-80.0); Red Blood Cells 4.53 10^6/uL (4.0-5.20); White Blood Cell 12.6 10^3/uL (4.4-10.8)
[2021-10-29 06:39] LABS: Albumin 2.7 g/dL (3.4-5.0); Magnesium 2.3 mg/dL (1.6-2.6); Potassium 4.2 mmol/L (3.5-5.1)
[2021-10-29 06:44] LABS: BUN/Creatinine Ratio 24.4; Bilirubin, Total 0.4 mg/dL (0.2-1.0); Phosphorus 2.6 mg/dL (2.5-4.90); Total Protein 6.8 g/dL (6.4-8.2)
[2021-10-29 06:45] LABS: Red Cell Distribution Width 36.6 % (11.8-14.3)
[2021-10-29 09:07] VITALS: BP 122/79
[2021-10-29] MEDS: cefTRIAXone 1GM/50ML D5W 50 ML IV SCH (09:09)
[2021-10-29] MEDS: SODIUM CHLOR 0.9% PF (SALINE LOCK) 10ML VIAL/SYR IV SCH ×2 (09:10→23:10)
[2021-10-29] MEDS: FLUCONAZOLE 200MG/100ML 100 ML IV SCH (09:10)
[2021-10-29] MEDS: NYSTATIN TOPICAL CREAM 15GM TOP SCH ×2 (09:10→22:00)
[2021-10-29] MEDS: KETOROLAC TROMETH 30 MG/ML 1ML VIAL IV PRN (12:30)
[2021-10-29 13:00] VITALS: BP_SYST 134
[2021-10-29 16:58] VITALS: BP 134/74
[2021-10-29] MEDS ORDERED: TPN PER PHARMACY IV NR ×10 (20:00)
[2021-10-29 22:00] VITALS: BP 114/72
[2021-10-30] MEDS: ACCU-CHEK COMFORT CURVE STRIP VI SCH ×4 (00:01→17:57)
[2021-10-30] MEDS: InsuLIN REG 1unit/0.01ml Soln (100units/ml) SC SCH ×4 (00:04→18:00)
[2021-10-30] MEDS: MORPHINE SULFATE 4 MG/ML SYR/VIAL IV PRN ×4 (00:07→16:27)
[2021-10-30] MEDS: metroNIDAZOLE 500MG/100ML 100 ML IV SCH ×3 (03:31→18:00)
[2021-10-30 04:23] LABS: Basophils # (auto) 0.1 10 ^3/uL (0-0.2); Eosinophils # (auto) 0.1 10 ^3/uL (0-0.8); Red Blood Cells 4.53 10^6/uL (4.0-5.20)
[2021-10-30 04:26] LABS: Basophils % (auto) 0.7 % (0.0-2.0); Eosinophils % (auto) 1.2 % (0.0-7.0); Hematocrit 32.1 % (36.0-46.0); Hemoglobin 9.4 g/dL (12.2-16.2); Lymphocytes # (auto) 1.6 10 ^3/uL (0.4-5.4); Lymphocytes % (auto) 18.9 % (10.0-50.0); Mean Corpuscular Hemoglobin 20.8 pg (28.0-32.0); Mean Corpuscular Hgb Conc. 29.3 g/dL (32.0-36.0); Mean Corpuscular Volume 70.9 fL (80.0-100.0); Monocytes # (auto) 1.1 10 ^3/uL (0-1.3); Monocytes % (auto) 12.7 % (0.0-12.0); Neutrophils # (auto) 5.8 10 ^3/uL (1.6-8.6); Neutrophils % (auto) 66.5 % (37.0-80.0); White Blood Cell 8.7 10^3/uL (4.4-10.8)
[2021-10-30 04:41] LABS: Potassium 4.3 mmol/L (3.5-5.1)
[2021-10-30 04:50] LABS: Albumin 2.7 g/dL (3.4-5.0); BUN/Creatinine Ratio 36.8; Bilirubin, Total 0.3 mg/dL (0.2-1.0); Calcium 8.6 mg/dL (8.5-10.1); Magnesium 2.4 mg/dL (1.6-2.6); Phosphorus 3.7 mg/dL (2.5-4.90); Total Protein 6.7 g/dL (6.4-8.2)
[2021-10-30 04:55] LABS: Red Cell Distribution Width 37.1 % (11.8-14.3)
[2021-10-30 05:00] VITALS: BP 109/64
[2021-10-30 09:00] VITALS: BP 102/75
[2021-10-30] MEDS: cefTRIAXone 1GM/50ML D5W 50 ML IV SCH (09:43)
[2021-10-30] MEDS: NYSTATIN TOPICAL CREAM 15GM TOP SCH (09:44)
[2021-10-30] MEDS: FLUCONAZOLE 200MG/100ML 100 ML IV SCH (09:44)
[2021-10-30] MEDS: SODIUM CHLOR 0.9% PF (SALINE LOCK) 10ML VIAL/SYR IV SCH (09:44)
[2021-10-30 13:00] VITALS: BP 132/74
[2021-10-30] MEDS: SODIUM CHLORIDE 0.9% 1,000 ML IV SCH (13:25)
[2021-10-30 17:00] VITALS: BP 137/74
[2021-10-30] MEDS ORDERED: ENOXAPARIN SOD 40 MG/0.4 ML SYRINGE SC ONE (19:30)
[2021-10-30] MEDS: TPN PER PHARMACY IV NR ×9 (20:01)
[2021-10-30 22:00] VITALS: BP 128/72
[2021-10-31] MEDS: SODIUM CHLOR 0.9% PF (SALINE LOCK) 10ML VIAL/SYR IV SCH ×3 (00:16→23:13)
[2021-10-31] MEDS: NYSTATIN TOPICAL CREAM 15GM TOP SCH ×3 (00:17→23:13)
[2021-10-31] MEDS: ACCU-CHEK COMFORT CURVE STRIP VI SCH ×4 (00:17→18:32)
[2021-10-31] MEDS: MORPHINE SULFATE 4 MG/ML SYR/VIAL IV PRN ×3 (00:34→16:58)
[2021-10-31] MEDS: SODIUM CHLORIDE 0.9% 1,000 ML IV SCH ×2 (01:13→23:14)
[2021-10-31] MEDS: metroNIDAZOLE 500MG/100ML 100 ML IV SCH ×3 (03:03→18:32)
[2021-10-31 05:00] VITALS: BP 135/82
[2021-10-31] MEDS: InsuLIN REG 1unit/0.01ml Soln (100units/ml) SC SCH ×4 (06:00→18:34)
[2021-10-31 07:33] LABS: Albumin 2.7 g/dL (3.4-5.0); BUN/Creatinine Ratio 32.5; Calcium 8.7 mg/dL (8.5-10.1); Magnesium 2.2 mg/dL (1.6-2.6); Phosphorus 3.6 mg/dL (2.5-4.90)
[2021-10-31 09:00] VITALS: BP 123/78
[2021-10-31] MEDS: ENOXAPARIN SOD 40 MG/0.4 ML SYRINGE SC SCH (10:10)
[2021-10-31] MEDS: cefTRIAXone 1GM/50ML D5W 50 ML IV SCH (10:11)
[2021-10-31] MEDS: FLUCONAZOLE 200MG/100ML 100 ML IV SCH (10:11)
[2021-10-31 13:00] VITALS: BP 125/75
[2021-10-31] MEDS ORDERED: TPN PER PHARMACY IV NR ×9 (20:00)
[2021-10-31] MEDS: TPN PER PHARMACY IV NR ×9 (20:20)
[2021-10-31 22:00] VITALS: BP 124/72
[2021-11-01] MEDS: ACCU-CHEK COMFORT CURVE STRIP VI SCH ×4 (00:08→17:38)
[2021-11-01] MEDS: MORPHINE SULFATE 4 MG/ML SYR/VIAL IV PRN ×3 (00:19→17:37)
[2021-11-01] MEDS: metroNIDAZOLE 500MG/100ML 100 ML IV SCH ×3 (02:38→18:19)
[2021-11-01 05:00] VITALS: BP 128/83
[2021-11-01] MEDS: InsuLIN REG 1unit/0.01ml Soln (100units/ml) SC SCH ×4 (06:00→17:38)
[2021-11-01 06:14] LABS: Potassium 4.3 mmol/L (3.5-5.1)
[2021-11-01 06:20] LABS: Albumin 2.9 g/dL (3.4-5.0); BUN/Creatinine Ratio 34.3; Calcium 8.3 mg/dL (8.5-10.1); Magnesium 2.3 mg/dL (1.6-2.6)
[2021-11-01 09:00] VITALS: BP 131/83
[2021-11-01] MEDS: ENOXAPARIN SOD 40 MG/0.4 ML SYRINGE SC SCH (09:42)
[2021-11-01] MEDS: cefTRIAXone 1GM/50ML D5W 50 ML IV SCH (09:42)
[2021-11-01] MEDS: NYSTATIN TOPICAL CREAM 15GM TOP SCH ×2 (09:43→21:00)
[2021-11-01] MEDS: FLUCONAZOLE 200MG/100ML 100 ML IV SCH (09:43)
[2021-11-01] MEDS: SODIUM CHLOR 0.9% PF (SALINE LOCK) 10ML VIAL/SYR IV SCH ×2 (09:53→20:56)
[2021-11-01 13:00] VITALS: BP 135/79
[2021-11-01 17:00] VITALS: BP 130/68
[2021-11-01] MEDS: SODIUM CHLORIDE 0.9% 1,000 ML IV SCH (18:19)
[2021-11-01] MEDS ORDERED: TPN PER PHARMACY IV NR ×8 (20:00)
[2021-11-01 22:00] VITALS: BP 131/87
[2021-11-02] MEDS: ACCU-CHEK COMFORT CURVE STRIP VI SCH ×2 (00:27→06:13)
[2021-11-02] MEDS: MORPHINE SULFATE 4 MG/ML SYR/VIAL IV PRN ×5 (00:37→21:48)
[2021-11-02] MEDS: metroNIDAZOLE 500MG/100ML 100 ML IV SCH ×3 (02:06→18:03)
[2021-11-02 05:00] VITALS: BP 132/81
[2021-11-02] MEDS: InsuLIN REG 1unit/0.01ml Soln (100units/ml) SC SCH ×2 (06:00)
[2021-11-02 07:55] LABS: Albumin 2.8 g/dL (3.4-5.0); Calcium 8.5 mg/dL (8.5-10.1); Magnesium 2.2 mg/dL (1.6-2.6); Potassium 4.2 mmol/L (3.5-5.1)
[2021-11-02 07:59] LABS: BUN/Creatinine Ratio 28.6; Bilirubin, Total 0.3 mg/dL (0.2-1.0); Phosphorus 3.2 mg/dL (2.5-4.90); Total Protein 7.2 g/dL (6.4-8.2)
[2021-11-02 09:00] VITALS: BP 132/79
[2021-11-02] MEDS: cefTRIAXone 1GM/50ML D5W 50 ML IV SCH (09:26)
[2021-11-02] MEDS: ENOXAPARIN SOD 40 MG/0.4 ML SYRINGE SC SCH (09:26)
[2021-11-02] MEDS: FLUCONAZOLE 200MG/100ML 100 ML IV SCH (09:27)
[2021-11-02] MEDS: NYSTATIN TOPICAL CREAM 15GM TOP SCH ×2 (09:30→21:47)
[2021-11-02] MEDS: SODIUM CHLOR 0.9% PF (SALINE LOCK) 10ML VIAL/SYR IV SCH ×2 (09:30→21:46)
[2021-11-02] MEDS: SODIUM CHLORIDE 0.9% 1,000 ML IV SCH ×2 (09:31→21:47)
[2021-11-02] MEDS ORDERED: IOTHALAMATE MEGLUMINE INJ 250ML BOT UR ONE (11:52)
[2021-11-02] MEDS ORDERED: IOHEXOL 300 MG/ML 100ML BOTTLE IJ ONE (12:41)
[2021-11-02 13:07] VITALS: BP 137/79
[2021-11-02 16:53] VITALS: BP 121/83
[2021-11-02] MEDS ORDERED: TPN PER PHARMACY IV NR ×9 (20:00)
[2021-11-02 22:00] VITALS: BP 112/74
[2021-11-03] MEDS: metroNIDAZOLE 500MG/100ML 100 ML IV SCH ×2 (02:05→11:08)
[2021-11-03 05:00] VITALS: BP 129/78
[2021-11-03] MEDS: MORPHINE SULFATE 4 MG/ML SYR/VIAL IV PRN ×2 (05:51→11:29)
[2021-11-03 05:59] LABS: Basophils # (auto) 0 10 ^3/uL (0-0.2); Lymphocytes # (auto) 1.7 10 ^3/uL (0.4-5.4); Mean Corpuscular Hgb Conc. 30.6 g/dL (32.0-36.0); Monocytes # (auto) 0.7 10 ^3/uL (0-1.3); Neutrophils # (auto) 4.1 10 ^3/uL (1.6-8.6); Nucleated Red Blood Cells % 0.1 %; White Blood Cell 6.6 10^3/uL (4.4-10.8)
[2021-11-03 06:02] LABS: Basophils % (auto) 0.5 % (0.0-2.0); Eosinophils # (auto) 0.2 10 ^3/uL (0-0.8); Eosinophils % (auto) 2.3 % (0.0-7.0); Hematocrit 29.3 % (36.0-46.0); Lymphocytes % (auto) 25.5 % (10.0-50.0); Mean Corpuscular Hemoglobin 21.1 pg (28.0-32.0); Mean Corpuscular Volume 69.1 fL (80.0-100.0); Monocytes % (auto) 10.2 % (0.0-12.0); Neutrophils % (auto) 61.5 % (37.0-80.0); Red Blood Cells 4.25 10^6/uL (4.0-5.20)
[2021-11-03 06:10] LABS: Red Cell Distribution Width 35.8 % (11.8-14.3)
[2021-11-03 06:20] LABS: Calcium 8.6 mg/dL (8.5-10.1); Potassium 4.4 mmol/L (3.5-5.1)
[2021-11-03 06:26] LABS: BUN/Creatinine Ratio 23.3; Bilirubin, Total 0.3 mg/dL (0.2-1.0); Total Protein 6.5 g/dL (6.4-8.2)
[2021-11-03] MEDS ORDERED: fentaNYL CITRATE 100 MCG/2 ML VL ONE (08:51)
[2021-11-03] MEDS ORDERED: SODIUM CHLORIDE LOCK 10 ML ONE (08:51)
[2021-11-03] MEDS ORDERED: diphenhdrAMINE HCL 50 MG/1 ML VL ONE (08:51)
[2021-11-03] MEDS ORDERED: MIDAZOLAM HCL 5 MG/ML-1ML VIAL ONE (08:51)
[2021-11-03] MEDS ORDERED: LIDOCAINE VISCOUS 2% 15ML UD ONE (08:51)
[2021-11-03 09:00] VITALS: BP 122/83
[2021-11-03] MEDS: cefTRIAXone 1GM/50ML D5W 50 ML IV SCH (11:08)
[2021-11-03] MEDS: FLUCONAZOLE 200MG/100ML 100 ML IV SCH (11:08)
[2021-11-03] MEDS: SODIUM CHLOR 0.9% PF (SALINE LOCK) 10ML VIAL/SYR IV SCH ×2 (11:08→21:32)
[2021-11-03] MEDS: NYSTATIN TOPICAL CREAM 15GM TOP SCH ×2 (11:09→21:32)
[2021-11-03 17:00] VITALS: BP 123/69
[2021-11-03 22:00] VITALS: BP 128/76
[2021-11-04] MEDS: metroNIDAZOLE 500MG/100ML 100 ML IV SCH ×2 (02:09→08:56)
[2021-11-04] MEDS: MORPHINE SULFATE 4 MG/ML SYR/VIAL IV PRN (02:19)
[2021-11-04 05:00] VITALS: BP 128/75
[2021-11-04] MEDS: cefTRIAXone 1GM/50ML D5W 50 ML IV SCH (08:56)
[2021-11-04] MEDS: FLUCONAZOLE 200MG/100ML 100 ML IV SCH (08:56)
[2021-11-04 09:00] VITALS: BP 134/60
[2021-11-04] MEDS: SODIUM CHLOR 0.9% PF (SALINE LOCK) 10ML VIAL/SYR IV SCH (13:35)
[2021-11-04] MEDS: NYSTATIN TOPICAL CREAM 15GM TOP SCH (13:35)
== END 2021-11-04 14:50 | disposition home or self-care (01) | DRG 710 ==
LOC: ER 00:50 → OVERFLOW 10:28 → CENTRAL 12:00
PROVIDERS: ADMIT Internal Medicine; ATTEND Internal Medicine
PROC: 02H633Z Insertion of Infusion Device into Right Atrium, Percutaneous Approach (ICD-10-PCS; principal; 2021-10-20)
PROC: 30233N1 Transfusion of Nonautologous Red Blood Cells into Peripheral Vein, Percutaneous Approach (ICD-10-PCS; 2021-10-21)
PROC: 0D1N0ZN Bypass Sigmoid Colon to Sigmoid Colon, Open Approach (ICD-10-PCS; 2021-10-27)
PROC: 0DBN0ZZ Excision of Sigmoid Colon, Open Approach (ICD-10-PCS; 2021-10-27)
PROC: 0TQB8ZZ Repair Bladder, Via Natural or Artificial Opening Endoscopic (ICD-10-PCS; 2021-10-27)
DX: A41.9 Sepsis, unspecified organism (principal); K57.20 Diverticulitis of large intestine with perforation and abscess without bleeding; N32.1 Vesicointestinal fistula; N39.0 Urinary tract infection, site not specified; D49.4 Neoplasm of unspecified behavior of bladder; B96.20 Unspecified Escherichia coli [E. coli] as the cause of diseases classified elsewhere; D64.9 Anemia, unspecified; E66.01 Morbid (severe) obesity due to excess calories; K21.9 Gastro-esophageal reflux disease without esophagitis; K62.1 Rectal polyp; Z20.822 Contact with and (suspected) exposure to COVID-19; Z68.41 Body mass index [BMI] 40.0-44.9, adult; Z83.71 Family history of colonic polyps
CPT/HCPCS: 36415; 36569; 71045; 74177; 74250; 74430; 80053; 80069; 81001; 82040; 82962; 83036; 83540; 83550; 83735; 84100; 84478; 84702; 85014; 85018; 85025; 85610; 85730; 86850; 86900; 86901; 86920; 96361; 96374; 96375; 97110; 97116; 97163; 97530; G0378; J0330; J0696; J1450; J1815; J1885; J2001; J2250; J2405; J2704; J3490